=== PATIENT | male | born 1955 | race Caucasian/White ===

== ENCOUNTER 2018-11-13 15:45 | Outpatient (REF) | payer BC, SELFPAY ==
[2018-11-13 21:13] LABS: Anion Gap 10.3 mmol/L (3-11); BUN 19 mg/dL (7-18); CO2 27.7 mmol/L (21.0-32.0); CREATININE 1.08 mg/dL (0.70-1.30); Calcium 8.9 mg/dL (8.5-10.1); Chloride 104 mmol/L (98-107); Cholesterol 256 mg/dL (50-200); Glucose 110 mg/dL (70-100); HDL Cholesterol 38 mg/dL (40-60); LDL CHOLESTEROL 170 mg/dL (<100); Potassium 4.7 mmol/L (3.5-5.1); Sodium 142 mmol/L (136-145); Triglyceride 238 mg/dL (30-150)
== END 2018-11-13 16:05 ==
LOC: NCHCN 15:45
PROVIDERS: PCP Internal Medicine; Visit Provider Internal Medicine
DX: I10 Essential (primary) hypertension (principal); Z13.220 Encounter for screening for lipoid disorders
CPT/HCPCS: 80048; 80061; 83721

== ENCOUNTER 2019-12-14 11:27 | Outpatient (REF) | payer OTHER, SELFPAY ==
[2019-12-14 21:36] LABS: ALT 18 U/L (16-63); AST 28 U/L (15-37); Albumin 3.5 g/dL (3.4-5.0); Alkaline Phosphatase 245 U/L (46-116); BUN 27 mg/dL (7-18); Bilirubin, Total 1.1 mg/dL (0.2-1.0); CREATININE 1.38 mg/dL (0.70-1.30); Calcium 9.3 mg/dL (8.5-10.1); Calculated LDL 173 mg/dL (<100); Chloride 102 mmol/L (98-107); Cholesterol 261 mg/dL (<200); Estimated GFR 51.71 (mL/min/1.73m2); Glucose 92 mg/dL (74-106); HDL Cholesterol 47 mg/dL (40-60); Potassium 4.7 mmol/L (3.5-5.1); Sodium 139 mmol/L (136-145); Total Protein 7.2 g/dL (6.4-8.2); Triglyceride 209 mg/dL (<150)
[2019-12-14 21:46] LABS: Hemoglobin A1C 6.2 % (3.8-5.6)
[2019-12-16 10:30] LABS: GGT 44 U/L (15-85)
== END 2019-12-14 11:47 ==
LOC: NCHCN 11:27
PROVIDERS: PCP Internal Medicine; Visit Provider Internal Medicine
DX: R73.09 Other abnormal glucose (principal); E78.89 Other lipoprotein metabolism disorders; I10 Essential (primary) hypertension; E66.9 Obesity, unspecified; R74.8 Abnormal levels of other serum enzymes
CPT/HCPCS: 80053; 80061; 82977; 83036

== ENCOUNTER 2023-04-21 14:41 | Outpatient (REF) | payer MEDICARE, SELFPAY ==
[2023-04-21 21:30] LABS: HCT 43.8 % (40.0-50.0); HGB 14.7 g/dL (13.5-17.5); MCH 32.7 pg (27.0-33.0); MCHC 33.6 % (32.0-36.0); MCV 97 fL (80-95); MPV 9.2 fL (8.0-11.0); Platelet Count 297 10^3/uL (130-400); RDW-SD 43.4 fL; WBC 12.93 10^3/uL (4.4-10.8)
[2023-04-21 21:42] LABS: ALT 36 U/L (16-63); AST 23 U/L (15-37); Albumin 3.7 g/dL (3.4-5.0); Alkaline Phosphatase 69 U/L (46-116); Anion Gap 9.9 mmol/L (3-11); BUN 25 mg/dL (7-18); Bilirubin, Total 0.6 mg/dL (0.2-1.0); CO2 24.1 mmol/L (21.0-32.0); CREATININE 1.2 mg/dL (0.70-1.30); Calcium 9.8 mg/dL (8.5-10.1); Chloride 99 mmol/L (98-107); Estimated GFR 65.46 (mL/min/1.73m2); Glucose 138 mg/dL (74-106); Potassium 4.7 mmol/L (3.5-5.1); Sodium 133 mmol/L (136-145); Total Protein 6.7 g/dL (6.4-8.2)
[2023-04-21 22:32] LABS: Absolute Lymphocyte Count 4.27 10^3/uL (1.2-3.4); Absolute Neutrophil Count 4.91 10^3/uL (1.2-6.7); Atypical Lymphocytes % 9
[2023-04-21 22:33] LABS: Absolute Eosinophil Count 3.36 10^3/uL (0.0-0.7); Absolute Monocyte Count 0.39 10^3/uL (0.1-0.8); Diff Comment Manual Differential; RBC Morphology Normal
== END 2023-04-21 14:42 | disposition home or self-care (01) ==
LOC: NCHCN 14:41
PROVIDERS: PCP Internal Medicine; Visit Provider Family Medicine
DX: K29.70 Gastritis, unspecified, without bleeding (principal)
CPT/HCPCS: 80053; 85025

== ENCOUNTER 2024-04-06 15:26 | Emergency (ER) | payer MEDICARE, SELFPAY ==
[2024-04-06] VITALS (36 sets, daily range): BP systolic 101–144; BP diastolic 52–85; PULSE 80–105; RESP 12–24; TEMP 36; O2SAT 94–99
--- NOTE | 2024-04-06 17:30 | DI.CT_ITS ---
Exam(s) CT ABDOMEN PELVIS W EXAM: CT ABDOMEN PELVIS W CLINICAL HISTORY: DIARRHEA. TECHNIQUE: Imaging Protocol: Axial computed tomography images with coronal and sagittal reformatted images were created and reviewed CONTRAST MATERIAL: Intravenous: Omnipaque-350 85cc Oral: None COMPARISON: MR MRI - LUMBAR SPINE WO CONTRAST from 11/05/2017 FINDINGS: VISUALIZED LUNG BASES: No nodules nor pleural effusions evident. ABDOMEN: There is an enlarged right-sided retrocrural lymph node measuring 1.7 by 1.1 cm. GI: The visualized lower esophagus is not dilated. GE junction appears unremarkable. There is mild thickening of the gastric fundus. Stomach otherwise appears unremarkable as does the duodenum. Ther e is a left-sided jejunostomy feeding tube in satisfactory position with no evidence of hematoma nor abscess along its course. There is no free intraperitoneal air. There is no evidence of bowel obstr uction. On the right side there is some thickening of the colon at the level of the hepatic flexure, possibly significant. Also some mild streaking around the cecum without evidence of obvious swollen appendix. The appendix is actually difficult to identify. LIVER: There are no focal hepatic lesions evident. There are no dilated intrahepatic ducts but there is some air-gas within nondilated intrahepatic ducts both lobes. CBD is not dilated but there is so me mild streaking in this region. GALLBLADDER/BILIARY: There is a single small 3 millimeter density in the gallbladder which may be a s mall stone or polyp. There is no gallbladder wall edema. PANCREAS: No evidence of pancreatic mass nor dilatation of the pancreatic duct. SPLEEN: Spleen is not enlarged. No obvious intrasplenic lesions. Splenic and portal veins are paten t. ADRENALS: Right adrenal unremarkable. Small nodule noted in the lateral limb of the left adrenal gla nd which measures 1 cm. Indeterminate density. KIDNEYS:Left kidney unremarkable. There is a benign cyst in the medial aspect of the right kidney wh ich measures 3.3 x 2.2. Does not require further workup. No solid renal masses nor calculi. No hyd ronephrosis nor hydroureter nor obvious abnormality in the nondistended urinary bladder.. ABDOMINAL AORTA: Aorta is calcified but not enlarged. Iliac arteries are not enlarged. LYMPH NODES:There is no retroperitoneal nor paraaortic adenopathy. ABDOMINAL WALL: No evidence of significant anterior abdominal wall nor inguinal hernia. PELVIS: GI: No evidence of appendicitis.No evidence of sigmoid diverticulitis. LYMPH NODES: There is no intrapelvic nor inguinal adenopathy. REPRODUCTIVE: Prostate size normal. There is a calcification in the right-side of the prostate. URINARY BLADDER: No calculi nor obvious masses evident OSSEOUS: There is sclerotic appearing bone lesions in L5 and S1 vertebral bodies suspicious for years sclerotic metastatic disease. There are multiple Schmorl nodes invagination evident in thoracic and lumbar vertebral bodies. IMPRESSION: 1. There is a left-sided jejunostomy feeding tube which is in satisfactory position. 2. There is mild thickening of the gastric fundus evident, possibly significant. 3. There is mild streaking around the nondilated CBD. There is intrahepatic pneumobilia, possibly re lated to prior ERCP instrumentation but given this finding and mild streaking around the CBD there is possibility of cholangitis. Possible cholelithiasis. Recommend ultrasound and possible MRCP. 4. There is some abnormal streaking in the right paracolic gutter and mild thickening of the ascendin g-right colon. Possible inflammatory process although no obvious diverticuli evident the appendix is difficult to identify as a distinct structure. There is no obvious swollen appendix. 5. Modic blastic bone lesions in L5 and S1. There is apparently a history of prostate malignancy. Prostate gland itself is not enlarged. 6. There is an abnormally enlarged right retrocrural lymph node noted which measures 17 x 11 mm. No other lymphadenopathy evident 7. Small indeterminate 1 cm nodule in the left adrenal gland. Right adrenal gland unremarkable. Surgical consultation recommended. First read by Carmen hawkins RADIATION DOSE DELIVERED: 605.23mGy.cm Total DLP DATA REPOSITORY: All CT scans at this facility are submitted to the National Radiology Data Registry (NRDR) Dose Index Registry (DIR) with the [employer] ([employer]). RADIATION OPTIMIZATION: All CT scans at this facility use at least one of these dose optimization te chniques: automated exposure control; mA and/or kV adjustment per patient size (includes targeted exa ms where dose is matched to clinical indication); or iterative reconstruction.
[2024-04-06 18:13] LABS: Abs Immature Grans 0.09 10^3/uL (0.0-0.06); Absolute Basophil Count 0.02 10^3/uL (0.0-0.2); Absolute Eosinophil Count 0.49 10^3/uL (0.0-0.7); Absolute Monocyte Count 0.68 10^3/uL (0.1-0.8); Basophils % 0.2 %; Eosinophils % 4.2 %; HCT 37.7 % (40.0-50.0); HGB 12.6 g/dL (13.5-17.5); Immature Grans % 0.8 %; Lymphocytes % 18.2 %; MCH 30.4 pg (27.0-33.0); MCHC 33.4 % (32.0-36.0); MCV 91 fL (80-95); MPV 9.4 fL (8.0-11.0); Monocytes % 5.9 %; Neutrophils % 70.7 %; Platelet Count 186 10^3/uL (130-400); RBC 4.14 10^6/uL (4.36-5.78); RDW 13.4 % (11.8-14.1); WBC 11.57 10^3/uL (4.4-10.8)
[2024-04-06 18:16] LABS: Absolute Lymphocyte Count 2.11 10^3/uL (1.2-3.4); Absolute Neutrophil Count 8.18 10^3/uL (1.2-6.7)
[2024-04-06 18:29] LABS: ALT 25 U/L (16-63); AST 17 U/L (15-37); Alkaline Phosphatase 81 U/L (46-116); Anion Gap 7.9 mmol/L (3-11); BUN 21 mg/dL (7-18); Bilirubin, Total 1.06 mg/dL (0.2-1.0); CO2 25.1 mmol/L (21.0-32.0); CREATININE 0.7 mg/dL (0.70-1.30); Calcium 8.7 mg/dL (8.5-10.1); Chloride 106 mmol/L (98-107); Estimated GFR 99.12 (mL/min/1.73m2); Glucose 91 mg/dL (74-106); Lipase 15 U/L (16-77); Magnesium 1.6 mg/dL (1.8-2.4); Potassium 3.7 mmol/L (3.5-5.1); Sodium 139 mmol/L (136-145); Total Protein 6.3 g/dL (6.4-8.2)
--- NOTE | 2024-04-06 18:37 | ED.GENADUL_ITS ---
Discharge Plan Disposition Patient Disposition: Home Discharge Details Clinical Impression: Metastatic cancer, Diarrhea Primary Care Provider: Rodo Davies ED Provider: Fabricio Burks Home Meds and New Rx's Prescriptions: No Action calcium carbonate-vitamin D3 600 mg-5 mcg (200 unit) tablet 2 tab PO DAILY famotidine 40 mg tablet 40 mg PO QHS lidocaine HCl 2 % solution 1 applic mucous membrane BID PRN sildenafil [Viagra] 100 MG tablet 100 mg PO DIRECTED Patient Comments: pt states no longer takes lisinopril 20 MG tablet 20 mg PO DAILY tamsulosin 0.4 mg capsule 0.4 mg PO DAILY Patient Comments: TAKE ONE CAPSULE BY MOUTH EVERY DAY pantoprazole 40 mg tablet,delayed release (DR/EC) 40 mg PO DAILY ondansetron 4 mg tablet,disintegrating 4 mg PO Q6H PRN Patient Comments: DISSOLVE ONE TABLET BY MOUTH TWICE A DAY Discharge Instructions Additional Instructions: * CONTINUE INCREASED HYDRATION * FOLLOW UP WITH YOUR ONCOLOGY TEAM * RETURN WITH ANY WORSENING SYMPTOMS OR OTHER CONCERNS HPI General Date/Time Provider Initiated Documentation: 04/06/24 15:28 . Limitations to Documentation: no limitations . Information obtained by: patient and family (Daughter) . HPI Narrative: 69-year-old gentleman with past medical history of prostate cancer, gastric cancer on chemotherapy followed by oncology at [facility] presents for evaluation of diarrhea. He last had chemotherapy 1 week ago. Had some vomiting over the weekend. Was evaluated by [facility] oncology yesterday in clinic. Had lab work at that time which was normal . He did receive an IV fluid bolus yesterday in clinic. Overnight he started having diarrhea. They describe it as sharting and that he has a large volume of gas but not very much stool actually comes out. He reports some cramping lower abdominal pain. No fever. No additional vomiting since over the weekend. No recent antibiotic use. Related Data Home Medications ?Medication ?Instructions ?Recorded ?Confirmed sildenafil 100 mg tablet (Viagra) 100 mg PO DIRECTED 03/02/14 04/06/24 lisinopril 20 mg tablet 20 mg PO DAILY 06/05/16 04/06/24 calcium 600 mg (as 2 tab PO DAILY 10/28/23 04/06/24 carbonate)-vitamin D3 5 mcg (200 unit) tablet famotidine 40 mg tablet 40 mg PO QHS 10/28/23 04/06/24 lidocaine HCl 2 % mucosal solution 1 applic mucous membrane BID PRN 10/28/23 04/06/24 ondansetron 4 mg disintegrating 4 mg PO Q6H PRN 04/06/24 04/06/24 tablet pantoprazole 40 mg tablet,delayed 40 mg PO DAILY 04/06/24 04/06/24 release tamsulosin 0.4 mg capsule 0.4 mg PO DAILY 04/06/24 04/06/24 Allergies Allergy/AdvReac Type Severity Reaction Status Date / Time No Known Allergies Allergy Unverified 04/06/24 15:33 General Stated Complaint: Nausea/Vomit/Diar SPENCER: 3 Exam Narrative Exam Narrative: Review of Systems: All systems reviewed & are unremarkable except as noted in HPI and below Well-developed, chronically ill-appearing NCAT Moist mucous membranes RRR no murmur Port in right upper chest wall Unlabored respiratory effort clear bilaterally Nondistended abdomen G-tube in place, laparoscopic port incisions noted, well-approximated no signs of infection. No rashes or lesions. no focal neurologic deficits Course Vital Signs Vital signs: Vital Signs Temperature 36 C L 04/06/24 15:30 Pulse 102 H 04/06/24 15:30 Respiratory Rate 18 04/06/24 15:30 Blood Pressure 127/85 04/06/24 15:30 Pulse Oximetry 96 04/06/24 15:30 Temperature 36 C L 04/06/24 15:30 Temperature Source Temporal Artery Scan 04/06/24 15:30 Pulse 97 H 04/06/24 17:27 Pulse Rhythm Regular 04/06/24 17:27 Respiratory Rate 18 04/06/24 17:27 Respiratory Effort Normal, Non-Labored 04/06/24 17:27 Respiratory Depth Normal 04/06/24 17:27 Respiratory Pattern Normal 04/06/24 17:27 Blood Pressure 144/84 H 04/06/24 17:27 Blood Pressure Mean 104 04/06/24 17:27 Blood Pressure Position Sitting 04/06/24 17:27 Pulse Oximetry 97 04/06/24 17:27 Oxygen Delivery Method Room Air 04/06/24 17:27 Oxygen Flow Rate 0 04/06/24 17:27 Pain Level 5 04/06/24 17:27 Lab/Test Results Lab/Test Results: Laboratory Tests Range/Units 04/06/24 18:00 WBC (4.4-10.8) 10^3/uL 11.57 H RBC (4.36-5.78) 10^6/uL 4.14 L Hgb (13.5-17.5) g/dL 12.6 L Hct (40.0-50.0) % 37.7 L MCV (80-95) fL 91 MCH (27.0-33.0) pg 30.4 MCHC (32.0-36.0) % 33.4 RDW (11.8-14.1) % 13.4 Plt Count (130-400) 10^3/uL 186 MPV (8.0-11.0) fL 9.4 Immature Gran % % 0.8 Neutrophils % % 70.7 Lymphocytes % % 18.2 Monocytes % % 5.9 Eosinophils % % 4.2 Basophils % % 0.2 Nucleated RBC % (0.0-0.3) % 0.0 Absolute Neutrophils (1.2-6.7) 10^3/uL 8.18 H Absolute Lymphocytes (1.2-3.4) 10^3/uL 2.11 Absolute Monocytes (0.1-0.8) 10^3/uL 0.68 Absolute Eosinophils (0.0-0.7) 10^3/uL 0.49 Absolute Basophils (0.0-0.2) 10^3/uL 0.02 Sodium (136-145) mmol/L 139 Potassium (3.5-5.1) mmol/L 3.7 Chloride (98-107) mmol/L 106 Carbon Dioxide (21.0-32.0) mmol/L 25.1 Anion Gap (3-11) mmol/L 7.9 BUN (7-18) mg/dL 21 H Creatinine (0.70-1.30) mg/dL 0.7 Est GFR (CKD-EPI 2020) (mL/min/1.73m2) 99.12 Glucose (74-106) mg/dL 91 Calcium (8.5-10.1) mg/dL 8.7 Magnesium (1.8-2.4) mg/dL 1.6 L Total Bilirubin (0.2-1.0) mg/dL 1.06 H AST (15-37) U/L 17 ALT (16-63) U/L 25 Alkaline Phosphatase (46-116) U/L 81 Total Protein (6.4-8.2) g/dL 6.3 L Albumin (3.4-5.0) g/dL 3.0 L Lipase (16-77) U/L 15 L Medical Decision Making Emergent evaluation of diarrhea and an immune compromised patient. With last chemo 1 week ago. Daughter reports that blood work yesterday and white blood cell count were normal. I do not have access to this blood work. At this time the patient does not appear to be clinically dehydrated. Given her IV fluids shortage and the fact that he got a bolus yesterday, will hold off fluids until I see lab work. Initial differential includes typhlitis, C. difficile, other infectious diarrhea or side effect from chemotherapy. Plan for lab work and CT imaging of his abdomen. 1840 Lab work reviewed. White blood cell count is 11.57, no evidence of neutropenia. No significant anemia. Electrolytes without significant derangement. Magnesium slightly low at 1.6. Total protein and albumin are low as well. CT imaging reviewed and there are multiple abnormalities secondary to his known metastatic disease. The family and the patient are aware of these abnormalities. The pneumobilia is likely from his recent surgical procedure there is no evidence of ascending cholangitis clinically. The patient has not had any diarrhea since 2:00. He is able to tell hydrate orally and through his G-tube. At this time I think he is stable for discharge home. With close follow-up with oncology team. Return precautions advised Quality:SDOH Health Related Social Needs: No Data to Display PFSH All Active Problems (Updated 04/06/24 @ 20:49 by Fabricio Burks MD) Diarrhea (Acute) Metastatic cancer (Acute) Gastroduodenitis (Acute) Hypertension (Chronic) Malignant neoplasm prostate (Chronic) Medical History Prediabetes Social History Smoking/Tobacco Use Status: Former Tobacco Use Smoking risk assessment performed?: Yes Alcohol Intake: never Drug use: Never Substance use type: does not use
[2024-04-06] MEDS: Omnipaque 350 MG/ML 100 ML BTL IJ (19:18)
[2024-04-06] MEDS: Normal Saline - Diluent 50 ML VIAL IJ (19:19)
--- NOTE | 2024-04-06 20:38 | DI.VRAD_ITS ---
PROCEDURE INFORMATION: Exam: CT Abdomen And Pelvis With Contrast Exam date and time: 04/06/2024 7:06 PM Age: 69 years old Clinical indication: Prior surgery; Surgery date: <1 month; Surgery type: Feeding tube; Patient HX: Diarrhea. Patient had prostate cancer and now has gastric cancer TECHNIQUE: Imaging protocol: Computed tomography of the abdomen and pelvis with contrast. Radiation optimization: All CT scans at this facility use at least one of these dose optimization techniques: automated exposure control; mA and/or kV adjustment per patient size (includes targeted exams where dose is matched to clinical indication); or iterative reconstruction. Contrast material: [id number]; Contrast volume: 85 ml; Contrast route: INTRAVENOUS (IV); COMPARISON: MRI - LUMBAR SPINE WO CONTRAST 11/05/2017 4:56 PM FINDINGS: Lungs: The lung bases are clear of acute infiltrate. No nodules in the lung bases are identified. Heart: The heart is not enlarged. There is no coronary artery calcification. Liver: The liver shows no abnormal lesion. There is however mild pneumobilia. This may be secondary to recent intervention as well as ascending cholangitis. There is no intrahepatic biliary dilatation. Gallbladder and biliary ducts: No calcified gallstones. The extrahepatic common duct is nondilated. Pancreas: The pancreas shows no focal lesion. Spleen: The spleen is not enlarged. Adrenal glands: The right adrenal gland is unremarkable. The left adrenal gland contains a 10 mm low-density nodule of the lateral limb. The Hounsfield density measurement is 23. This is indeterminate for an adenoma. Kidneys and ureters: The kidneys are unobstructed. There are no calculi. The right kidney contains a 3.1 cm low-density cortical lesion consistent with a simple cyst the Hounsfield density measurement is 13 Stomach and bowel: The patient has a clinical history of gastric carcinoma. There is mild thickening at the gastroesophageal junction and of the gastric fundus. There is no gastric outlet obstruction. There is mild thickening of the colon at the level of the hepatic flexure. This may represent peristalsis and edema but a developing metastatic deposit cannot be excluded. (series 8, image 37 No inflammatory process of the sigmoid colon. The patient has a small bowel feeding tube in the left flank which is in good position. Appendix: No findings for appendicitis. Intraperitoneal space: No free air or free fluid Vasculature: The abdominal aorta is of normal caliber. Lymph nodes: There are several right retrocrural lymph nodes which are enlarged. The largest measures 11 x 18 mm. No abnormal para-aortic lymph nodes are identified. Urinary bladder: The bladder shows no filling defects. Reproductive: The prostate gland is not abnormally enlarged. There are surgical clips in the scrotum consistent with a prior vasectomy. Bones/joints: There are sclerotic lesions involving the L5 and S1 vertebral bodies consistent with metastatic deposits. There are additional sclerotic lesions involving the lower thoracic spine as well as degenerative changes and a superior endplate compression deformity of the T11 body which appears chronic Soft tissues: No abnormal abdominal soft tissue masses identified. IMPRESSION: 1. History of prostate carcinoma with sclerotic lesions involving L5, S1 and lower thoracic vertebral bodies. 2. Mild thickening at the gastroesophageal junction and gastric fundus which may represent underlying neoplasm. 3. Mild intrahepatic pneumobilia which may be secondary to recent intervention or ascending cholangitis. 4. Thickening at the level of the hepatic flexure which may be secondary to edema or developing metastatic deposit. 5. Increased right retrocrural adenopathy. 6. Small left adrenal nodule. 7. Small bowel feeding tube in good position. A. Bony metastatic disease of the thoracic spine, lumbar spine and sacrum. Dictated and Authenticated by: Conrad Canchola MD. Ordering:[facility] Vitaliy Rosario MD
== END 2024-04-06 20:53 | disposition home or self-care (01) ==
PROVIDERS: Emergency Provider Emergency Medicine; PCP Internal Medicine
DX: R53.1 Weakness (principal); R19.7 Diarrhea, unspecified; C61 Malignant neoplasm of prostate; C78.89 Secondary malignant neoplasm of other digestive organs; I10 Essential (primary) hypertension; R93.5 Abnormal findings on diagnostic imaging of other abdominal regions, including retroperitoneum; Z93.1 Gastrostomy status; Z92.21 Personal history of antineoplastic chemotherapy; Z87.891 Personal history of nicotine dependence
CPT/HCPCS: 80053; 83690; 99285; 74177; 83735; 85025; 99284; J3490

== ENCOUNTER 2024-07-23 23:58 | Emergency (ER) | payer MEDICARE, SELFPAY ==
--- NOTE | 2024-07-23 23:45 | RT.EKG_ITS ---
APPROVED REPORT Exam: Resting ECG Reason for Exam: fever/tachy Patient Location: E HR:116 bpm ECG Measurements Heart Rate 116 AXIS MA 137 P 56 QRSd 90 QRS -23 QT 330 T 4 QTc 459 Conclusion Sinus tachycardia...rate> 99 Low voltage, precordial leads...precordial leads <1.0mV I have reviewed and interpreted ECG and agree with software generated interpretation.
[2024-07-23 23:59] VITALS: BP 151/71; PULSE 125; RESP 21; TEMP 37.4; O2SAT 93
[2024-07-24] VITALS (62 sets, daily range): BP systolic 121–165; BP diastolic 61–93; PULSE 104–128; RESP 19–32; O2SAT 89–98
[2024-07-24 00:23] LABS: BE (Venous) 5 mmol/L (-2-3); HCO3 (Venous) 29 mmol/L (23-28); O2 Sat (Venous) 31 %; TCO2 (Venous) 28 mmol/L (24-29); pCO2 (Venous) 43 mmHg (41-51); pH (Venous) 7.44 (7.31-7.41); pO2 (Venous) 20 mmHg
[2024-07-24 00:24] LABS: Lactate 1.3 mmol/L (<or=2.0)
[2024-07-24 00:28] LABS: Abs Immature Grans 0.04 10^3/uL (0.0-0.06); Absolute Basophil Count 0.01 10^3/uL (0.0-0.2); Absolute Eosinophil Count 0.05 10^3/uL (0.0-0.7); Absolute Lymphocyte Count 1.59 10^3/uL (1.2-3.4); Absolute Monocyte Count 1.34 10^3/uL (0.1-0.8); Absolute Neutrophil Count 9.03 10^3/uL (1.2-6.7); Basophils % 0.1 %; Eosinophils % 0.4 %; HCT 25.7 % (40.0-50.0); HGB 8.3 g/dL (13.5-17.5); Immature Grans % 0.3 %; Lymphocytes % 13.2 %; MCH 33.9 pg (27.0-33.0); MCHC 32.3 % (32.0-36.0); MCV 105 fL (80-95); MPV 10.2 fL (8.0-11.0); Monocytes % 11.1 %; Neutrophils % 74.9 %; Platelet Count 208 10^3/uL (130-400); RBC 2.45 10^6/uL (4.36-5.78); RDW 12.9 % (11.8-14.1); RDW-SD 49.9 fL; WBC 12.06 10^3/uL (4.4-10.8)
--- NOTE | 2024-07-24 00:35 | ED.GENADUL_ITS ---
Discharge Plan Disposition Patient Disposition: Transfer-Acute Inpatient Care Specific Acute Inpt Facility: [facility] Condition: Improving Discharge Details Clinical Impression: Sepsis, Pleural effusion, Abdominal pain, Fever of unknown origin Primary Care Provider: Rodo Davies ED Provider: Zac Bauer Home Meds and New Rx's Prescriptions: No Action calcium carbonate-vitamin D3 600 mg-5 mcg (200 unit) tablet 2 tab PO DAILY famotidine 40 mg tablet 40 mg PO QHS lidocaine HCl 2 % solution 1 applic mucous membrane BID PRN sildenafil [Viagra] 100 MG tablet 100 mg PO DIRECTED Patient Comments: pt states no longer takes lisinopril 20 MG tablet 20 mg PO DAILY oxycodone 5 mg tablet 5 mg PO tamsulosin 0.4 mg capsule 0.4 mg PO DAILY Patient Comments: TAKE ONE CAPSULE BY MOUTH EVERY DAY pantoprazole 40 mg tablet,delayed release (DR/EC) 40 mg PO DAILY ondansetron 4 mg tablet,disintegrating 4 mg PO Q6H PRN Patient Comments: DISSOLVE ONE TABLET BY MOUTH TWICE A DAY HPI General Date/Time Provider Initiated Documentation: 07/24/24 00:00 . 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 Patient has been home for the last 2 days, he has been having bowel movements and regular urinary movements. However over the last 24 hours his daughter has noted a decrease in his oxygenation, increase in respirations, and increase in heart rate. He admits to chronic persistent lower abdominal pain. He has had about 100+ cc of drainage from his abdominal CHRISTOPHER drain. He denies any vomiting. He does admit to intermittent fevers at home. He does admit to intermittent chills. He denies any hematemesis or hematochezia. No other complaints at this time. He is not currently on antibiotics. Related Data Home Medications ?Medication ?Instructions ?Recorded ?Confirmed sildenafil 100 mg tablet (Viagra) 100 mg PO DIRECTED 03/02/14 07/24/24 lisinopril 20 mg tablet 20 mg PO DAILY 12/21/16 02/08/25 calcium 600 mg (as 2 tab PO DAILY 10/28/23 07/24/24 carbonate)-vitamin D3 5 mcg (200 unit) tablet famotidine 40 mg tablet 40 mg PO QHS 10/28/23 07/24/24 lidocaine HCl 2 % mucosal solution 1 applic mucous membrane BID PRN 10/28/23 07/24/24 ondansetron 4 mg disintegrating 4 mg PO Q6H PRN 04/06/24 07/24/24 tablet pantoprazole 40 mg tablet,delayed 40 mg PO DAILY 04/06/24 07/24/24 release tamsulosin 0.4 mg capsule 0.4 mg PO DAILY 04/06/24 07/24/24 oxycodone 5 mg tablet 5 mg PO 07/24/24 Allergies Allergy/AdvReac Type Severity Reaction Status Date / Time No Known Allergies Allergy Unverified 07/24/24 03:08 General Stated Complaint: GenMedical SPENCER: 3 Exam Narrative Exam Narrative: 1.Const: Well-nourished, Well-developed, appearing stated age 2.Eyes: PERRL, no conjunctival injection, and symmetrical lids. 3.ENT: Atraumatic external nose and ears. Dry MM. Neck: Symmetric, trachea midline, No thyromegaly. 4.CVS: +S1/S2, Peripheral pulses 2+ and equal in all extremities. Brisk capillary refill in all extremities. 5.RESP: Unlabored respiratory effort. Slight diminishment at bases, no severe rhonchi. Questionable crackles. 6.GI: Postoperative vertical incision site is clean dry and intact with clare in place. No erythema or drainage. CHRISTOPHER drain demonstrates active white serou s/pseudo purulent drainage. Gastric tube in place without abnormality. Mild tenderness throughout on palpation of the lower abdomen, particularly near the mid lower abdomen. Mild voluntary guarding. 7.MSK: Normocephalic/Atraumatic, Extremities w/o deformity or ttp No cyanosis or clubbing, Normal movement of all extremities. No pitting edema of the lower extremities. 8.Skin: Warm, Dry. No rashes or lesions. 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 Sensation grossly intact, no focal neurologic deficits. 10.Psych: (AAO) x3. Appropriate mood and affect Course Vital Signs Vital signs: Vital Signs Temperature 37.4 C 07/23/24 23:59 Pulse 125 H 02/07/25 23:59 Respiratory Rate 21 07/23/24 23:59 Blood Pressure 151/71 H 07/23/24 23:59 Pulse Oximetry 93 07/23/24 23:59 Temperature 37.4 C 07/23/24 23:59 Temperature Source Oral 07/23/24 23:59 Pulse 125 H 07/23/24 23:59 Respiratory Rate 21 07/23/24 23:59 Blood Pressure 151/71 H 07/23/24 23:59 Blood Pressure Position Supine 07/23/24 23:59 Pulse Oximetry 93 07/23/24 23:59 Oxygen Delivery Method Room Air 07/23/24 23:59 Oxygen Flow Rate 0 07/23/24 23:59 Lab/Test Results Lab/Test Results: 07/24/24 00:13 Blood Blood Culture - Pending 07/24/24 00:08 Blood Blood Culture - Pending Laboratory Tests Range/Units 07/24/24 00:13 WBC (4.4-10.8) 10^3/uL 12.06 H RBC (4.36-5.78) 10^6/uL 2.45 L Hgb (13.5-17.5) g/dL 8.3 L Hct (40.0-50.0) % 25.7 L MCV (80-95) fL 105 H MCH (27.0-33.0) pg 33.9 H MCHC (32.0-36.0) % 32.3 RDW (11.8-14.1) % 12.9 Plt Count (130-400) 10^3/uL 208 MPV (8.0-11.0) fL 10.2 Immature Gran % % 0.3 Neutrophils % % 74.9 Lymphocytes % % 13.2 Monocytes % % 11.1 Eosinophils % % 0.4 Basophils % % 0.1 Nucleated RBC % (0.0-0.3) % 0.0 Absolute Neutrophils (1.2-6.7) 10^3/uL 9.03 H Absolute Lymphocytes (1.2-3.4) 10^3/uL 1.59 Absolute Monocytes (0.1-0.8) 10^3/uL 1.34 H Absolute Eosinophils (0.0-0.7) 10^3/uL 0.05 Absolute Basophils (0.0-0.2) 10^3/uL 0.01 VBG pH (7.31-7.41) 7.44 H VBG pCO2 (41-51) mmHg 43 VBG pO2 mmHg 20 VBG HCO3 (23-28) mmol/L 29 H VBG Total CO2 (24-29) mmol/L 28 VBG O2 Saturation % 31 VBG Base Excess (-2-3) mmol/L 5 H VBG Lactate (<or=2.0) mmol/L 1.3 Medical Decision Making This is a 69-year-old male with a past medical history of prostate cancer currently receiving chemotherapy, hypertension, GERD, peptic ulcer disease, 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 Patient has been home for the last 2 days, he has been having bowel movements and regular urinary movements. However over the last 24 hours his daughter has noted a decrease in his oxygenation, increase in respirations, and increase in heart rate. He admits to chronic persistent lower abdominal pain. He has had about 100+ cc of drainage from his abdominal CHRISTOPHER drain. He denies any vomiting. He does admit to intermittent fevers at home. He does admit to intermittent chills. He denies any hematemesis or hematochezia. No other complaints at this time. He is not currently on antibiotics. Exam demonstrates a slightly guarded male, abdominal tenderness in the lower abdomen especially in the mid region is certainly present. Incision site is otherwise clean dry and intact, CHRISTOPHER drain demonstrates white serous purulent discharge. No blood. Notably dry mucous membranes. Patient is tachycardic and febrile, concern for postoperative infection versus pneumonia. UTI less likely. Patient does meet sepsis criteria. We will start broad-spectrum antibiotics for both atypical coverage, hospital-acquired infections, and postoperative intra-abdominal infections. Will give vancomycin Zosyn and azithromycin. Will gently rehydrate first with 1 L, but I do want to avoid excessive rehydration secondary to his age, and concern for potential fluid overload. We will get CT imaging of the chest abdomen and pelvis, monitor closely and reassess. 4:24 AM Laboratory workup shows stable white count at 12, mild left shift with an absolute neutrophil count of 9, lactate is normal at 1.3, however procalcitonin is elevated at 0.2. Electrolytes stable. Urinalysis negative for infection, COVID flu and RSV negative for evidence of infection. CT imaging shows small bilateral pleural effusions, atelectasis is noted. There is some air in the bladder, however this is likely from procedure elicitation as he has no evidence of infection in the urine to suggest fistula or UTI. There are some inflammatory changes noted throughout the abdomen otherwise. Patient's heart rate is slightly improving after 1 L fluid bolus, he has come down from the 120s and 130s to the 110's. Uncertain as to the source of his home fever and mildly elevated temperature here, certainly could be a component of the atelectasis in the lungs, or change in the intra-abdominal compartment although there is no evidence of large fluid collection to suggest definitive abscess. Antibiotics have been given already. Pain is still notably pleasant for the abdomen, and we will transition to narcotic/morphine use for pain control. We did contact surgery at the [facility], I spoke with Dr. Wills. Patient will be transferred to [facility] ED to ED for admission. I have extensively reviewed the treatment plan with the patient. I have addressed all patient concerns at this time. I have also discussed the plan with the admitting physician and they agree with the current assessment and plan and have agreed to assume responsibility for the patient. All parties demonstrate verbal understanding and agreement with our assessment and plan at this time. The documentation in this chart was dictated using Disc[employer] dictation software. Please excuse any dictation errors. FINDINGS: Tubes, catheters and devices: Right chest wall port present. Lungs: Dependent/basilar/compressive atelectasis. Pleural spaces: Small volume bilateral pleural effusions. Heart: Unremarkable. No cardiomegaly. No pericardial effusion. Esophagus: Esophagus is unremarkable. Lymph nodes: Unremarkable. No enlarged lymph nodes. Vasculature: Aorta is normal in caliber. Bones/joints: Multifocal sclerotic osseous metastases. Soft tissues: Substantial bilateral gynecomastia IMPRESSION: 1. Small volume bilateral pleural effusions. 2. Multifocal sclerotic osseous metastases FINDINGS: Tubes, catheters and devices: Percutaneous J-tube in place. Right lower quadrant percutaneous drainage catheter tip is at the gastrohepatic ligament. No associated abscess. Liver: Normal. No mass. Gallbladder and biliary ducts: Gallbladder sludge. Gallbladder is distended. No definite gallbladder wall thickening to indicate acute cholecystitis. No biliary ductal dilatation. Pancreas: Nonspecific right upper quadrant inflammation is presumably related to recent surgery; however, acute pancreatitis or cholecystitis is not excluded. Spleen: Normal. Adrenal glands: Normal. No mass. Kidneys and ureters: Normal. No hydronephrosis. Stomach and bowel: Chronic postsurgical changes of the stomach and bowel. No bowel wall thickening or intestinal obstruction. No pneumatosis or portal/mesenteric venous gas. Appendix: Normal appendix. Intraperitoneal space: No pneumoperitoneum. Retroperitoneal space: There is a 3.2 cm heterogeneously hypoattenuating oval structure in the retroperitoneum anterior to the aorta (image 162/series 2) which was not present on the prior study. Etiology is uncertain. There is no associated inflammation. Consider further evaluation with repeat study with IV contrast. Vasculature: See Stomach and bowel finding. Lymph nodes: Unremarkable. Urinary bladder: Gas in the lumen of the urinary bladder. Small bladder diverticulum. Reproductive: Unremarkable as visualized. Bones/joints: Multifocal sclerotic osseous metastases. Soft tissues: Expected recent post laparotomy changes of the anterior abdominal wall. IMPRESSION: 1. Multifocal sclerotic osseous metastases. 2. There is air in the anti-dependent lumen of the urinary bladder with no Kelly catheter in place. This is a normal finding if the patient has had a Kelly catheter recently removed, if there has been recent straight catheterization or a recent unsuccessful attempt at Kelly catheter placement, or if there has been recent transurethral intervention. Otherwise, the presence of air in the bladder raises the possibility of the presence of a vesicoenteric/vesicocolic fistula or emphysematous cystitis; however, there are no ancillary findings of either of these entities on this study. RECOMMEND clinical correlation. 3. There is a 3.2 cm heterogeneously hypoattenuating oval structure in the retroperitoneum anterior to the aorta (image 162/series 2) which was not present on the prior study. Etiology is uncertain. There is no associated inflammation. Consider further evaluation with repeat study with IV contrast. 4. Nonspecific right upper quadrant inflammation is presumably related to recent surgery; however, acute pancreatitis or cholecystitis is not excluded. Thank you for allowing us to participate in the care of your patient. Dictated and Authenticated by: Dinh Reed MD 07/24/2024 1:37 AM Eastern Time ([place] & [place]) Quality:SDOH Health Related Social Needs: No Data to Display Critical Care Time Critical Care Time Critical Care Time: Yes Total Critical Care Time: 45 Attestation: Upon my evaluation, this patient had a high probability of imminent or life- threatening deterioration, which required my direct attention, intervention, and personal management. I have personally provided 45 minutes of critical care time exclusive of time spent on separately billable procedures. Time includes review of laboratory data, radiology results, discussion with consultants, and monitoring for potential decompensation. Interventions were performed as documented. PFSH All Active Problems (Updated 07/24/24 @ 04:23 by Zac Bauer DO) Fever of unknown origin (Acute) Abdominal pain (Acute) Pleural effusion (Acute) Sepsis (Acute) Gastroduodenitis (Acute) Hypertension (Chronic) Malignant neoplasm prostate (Chronic) Medical History Prediabetes Social History Smoking/Tobacco Use Status: Former Tobacco Use Smoking risk assessment performed?: Yes Alcohol Intake: never Drug use: Never Substance use type: does not use Do you feel safe at home: Yes Do you feel safe in your relationship?: Yes
[2024-07-24 00:37] LABS: PTT Activated 26.1 sec (20.6-30.2); Prothrombin Time 10.5 sec (9.1-11.1)
--- NOTE | 2024-07-24 00:44 | DI.CT_ITS ---
Exam(s) CT CHEST/ABD/PEL WO EXAM: CT CHEST/ABD/PEL WO CLINICAL HISTORY: post op fever, abd sahara, cough. TECHNIQUE: Imaging Protocol: Axial computed tomography images with coronal and sagittal reformatted images were created and reviewed. Computer aided detection (CAD) was utilized. CONTRAST MATERIAL: Intravenous: Noncontrast Oral: no COMPARISON: CT CT ABDOMEN PELVIS W from 04/06/2024 FINDINGS: CHEST: Tracheobronchial tree: Patent. Pulmonary parenchyma: No consolidation or dominant measurable mass. Basilar atelectasis. Pleura: Small bilateral pleural effusions no pneumothorax. Mediastinum: Within normal limits. Aorta: Thoracic portion non-dilated. Pulmonary arteries: No visible emboli. Heart: Normal size. Coronary artery calcifications. No pericardial effusion. Bones: Unremarkable for age. Scattered sclerotic bone metastases again noted. No compression fractu res. Soft tissues: Port over right upper chest. Significant bilateral gynecomastia. ABDOMEN and PELVIS: Liver: Normal density. No measurable mass. Gallbladder and biliary tract: Gallbladder sludge. No wall thickening. No biliary dilatation. Pancreas: Normal density, no abnormal calcifications or inflammatory process. Spleen: Normal. Kidneys: Normal size, contour and axis. No radiodense stones. No obstructive uropathy. No suspicious masses seen. Adrenal glands: No masses seen. Aorta: Abdominal portion non-dilated. Lymph nodes: Within normal limits. Soft tissues: Upper midline surgical skin clare. Some body wall edema. Bladder: Wall thickening and mild trabeculation. Left-sided bladder diverticulum. Small air bubble noted within the bladder. Bowel: Surgical clips at fundus of stomach. Gastric resection as occurred since the previous exam. Left anterior small bowel anastomosis. Percutaneous jejunostomy noted. Mild dilatation of proximal jejunum. Additional catheter entering at the right upper midline extending superiorly adjacent to th e medial border of the liver. No obstruction or bowel wall thickening. High-density material noted in the colon related to a recent contrast administration. Peritoneal cavity: No ascites. No focal collection. Mild mesenteric edema. No free air. Retroperitoneum: Ovoid 3.2 centimeter soft tissue nodule seen anterior to the aorta, at the level of the renal veins. This is new since the prior exam. Could represent adenopathy versus post surgical changes. Bones: Sclerotic bone metastases again noted. Reproductive organs: Status post prostatectomy. IMPRESSION: Chest: Small bilateral pleural effusions and adjacent atelectasis. Abdomen pelvis: Recent surgery with drain in place. No significant fluid collection or ascites. No evidence of abscess. No evidence of bowel obstruction. Soft tissue density anterior to aorta of uncertain etiology. Recommend postcontrast examination. Widespread sclerotic bony metastases. Small amount of air in the bladder. Clinical correlation recommended. Bladder wall thickening and b ladder diverticulum. RADIATION DOSE DELIVERED: Total DLP DATA REPOSITORY: All CT scans at this facility are submitted to the National Radiology Data Registry (NRDR) Dose Index Registry (DIR) with the [employer] (A[employer]). RADIATION OPTIMIZATION: All CT scans at this facility use at least one of these dose optimization te chniques: automated exposure control; mA and/or kV adjustment per patient size (includes targeted exa ms where dose is matched to clinical indication); or iterative reconstruction.
[2024-07-24 00:45] LABS: ALT 21 U/L (16-63); AST 16 U/L (15-37); Albumin 1.8 g/dL (3.4-5.0); Alkaline Phosphatase 132 U/L (46-116); Anion Gap 6.2 mmol/L (3-11); BUN 17 mg/dL (7-18); Bilirubin, Total 0.39 mg/dL (0.2-1.0); CO2 30.8 mmol/L (21.0-32.0); CREATININE 0.7 mg/dL (0.70-1.30); Calcium 8.6 mg/dL (8.5-10.1); Chloride 104 mmol/L (98-107); Estimated GFR 99.12 (mL/min/1.73m2); Glucose 117 mg/dL (74-106); Potassium 3.8 mmol/L (3.5-5.1); Sodium 141 mmol/L (136-145); Total Protein 6.2 g/dL (6.4-8.2)
[2024-07-24] MEDS: PIPERACILLIN/TAZO 3.375 GM in Normal Saline 100 ML IVPB (01:04)
[2024-07-24] MEDS: Lactated Ringers 500 ML 1000 ML IV (01:05)
[2024-07-24] MEDS: AZITHROMYCIN 500 MG in Normal Saline 250 ML 250 MG IVPB (01:08)
[2024-07-24 01:25] LABS: COVID-19 PCR Negative (Negative); Influenza A PCR Negative (Negative); Influenza B PCR Negative (Negative); RSV PCR Negative (Negative); Source Nasopharynx
--- NOTE | 2024-07-24 01:37 | DI.VRAD_ITS ---
PROCEDURE INFORMATION: Exam: CT Chest Without Contrast; Diagnostic Exam date and time: 07/24/2024 12:28 AM Age: 69 years old Clinical indication: Abdominal pain; Generalized; Prior surgery; Surgery date: Post-operative (0-2 days); Surgery type: Stomach resection, drain; Post op fever, abd pain, cough, TECHNIQUE: Imaging protocol: Diagnostic computed tomography of the chest without contrast. 3D rendering (Not supervised by radiologist): MIP and/or 3D reconstructed images were created by the technologist. Radiation optimization: All CT scans at this facility use at least one of these dose optimization techniques: automated exposure control; mA and/or kV adjustment per patient size (includes targeted exams where dose is matched to clinical indication); or iterative reconstruction. COMPARISON: CT ABDOMEN PELVIS W 04/06/2024 7:06 PM FINDINGS: Tubes, catheters and devices: Right chest wall port present. Lungs: Dependent/basilar/compressive atelectasis. Pleural spaces: Small volume bilateral pleural effusions. Heart: Unremarkable. No cardiomegaly. No pericardial effusion. Esophagus: Esophagus is unremarkable. Lymph nodes: Unremarkable. No enlarged lymph nodes. Vasculature: Aorta is normal in caliber. Bones/joints: Multifocal sclerotic osseous metastases. Soft tissues: Substantial bilateral gynecomastia IMPRESSION: 1. Small volume bilateral pleural effusions. 2. Multifocal sclerotic osseous metastases. PROCEDURE INFORMATION: Exam: CT Abdomen And Pelvis Without Contrast Exam date and time: 07/24/2024 12:28 AM Age: 69 years old Clinical indication: Abdominal pain; Generalized; Prior surgery; Surgery date: Post-operative (0-2 days); Surgery type: Stomach resection, drain; Post op fever, abd pain, cough, TECHNIQUE: Imaging protocol: Computed tomography of the abdomen and pelvis without contrast. 3D rendering (Not supervised by radiologist): MIP and/or 3D reconstructed images were created by the technologist. Radiation optimization: All CT scans at this facility use at least one of these dose optimization techniques: automated exposure control; mA and/or kV adjustment per patient size (includes targeted exams where dose is matched to clinical indication); or iterative reconstruction. COMPARISON: CT ABDOMEN PELVIS W 04/06/2024 7:06 PM FINDINGS: Tubes, catheters and devices: Percutaneous J-tube in place. Right lower quadrant percutaneous drainage catheter tip is at the gastrohepatic ligament. No associated abscess. Liver: Normal. No mass. Gallbladder and biliary ducts: Gallbladder sludge. Gallbladder is distended. No definite gallbladder wall thickening to indicate acute cholecystitis. No biliary ductal dilatation. Pancreas: Nonspecific right upper quadrant inflammation is presumably related to recent surgery; however, acute pancreatitis or cholecystitis is not excluded. Spleen: Normal. Adrenal glands: Normal. No mass. Kidneys and ureters: Normal. No hydronephrosis. Stomach and bowel: Chronic postsurgical changes of the stomach and bowel. No bowel wall thickening or intestinal obstruction. No pneumatosis or portal/mesenteric venous gas. Appendix: Normal appendix. Intraperitoneal space: No pneumoperitoneum. Retroperitoneal space: There is a 3.2 cm heterogeneously hypoattenuating oval structure in the retroperitoneum anterior to the aorta (image 162/series 2) which was not present on the prior study. Etiology is uncertain. There is no associated inflammation. Consider further evaluation with repeat study with IV contrast. Vasculature: See Stomach and bowel finding. Lymph nodes: Unremarkable. Urinary bladder: Gas in the lumen of the urinary bladder. Small bladder diverticulum. Reproductive: Unremarkable as visualized. Bones/joints: Multifocal sclerotic osseous metastases. Soft tissues: Expected recent post laparotomy changes of the anterior abdominal wall. IMPRESSION: 1. Multifocal sclerotic osseous metastases. 2. There is air in the anti-dependent lumen of the urinary bladder with no Kelly catheter in place. This is a normal finding if the patient has had a Kelly catheter recently removed, if there has been recent straight catheterization or a recent unsuccessful attempt at Kelly catheter placement, or if there has been recent transurethral intervention. Otherwise, the presence of air in the bladder raises the possibility of the presence of a vesicoenteric/vesicocolic fistula or emphysematous cystitis; however, there are no ancillary findings of either of these entities on this study. RECOMMEND clinical correlation. 3. There is a 3.2 cm heterogeneously hypoattenuating oval structure in the retroperitoneum anterior to the aorta (image 162/series 2) which was not present on the prior study. Etiology is uncertain. There is no associated inflammation. Consider further evaluation with repeat study with IV contrast. 4. Nonspecific right upper quadrant inflammation is presumably related to recent surgery; however, acute pancreatitis or cholecystitis is not excluded. Dictated and Authenticated by: Dinh Reed MD. Orderin Lizette Frank MD
[2024-07-24 03:05] LABS: Bilirubin Negative (Negative); Blood Negative (Negative); Clarity Clear (Clear); Glucose Negative (Negative); Ketones Negative (Negative); Leukocyte Esterase Negative (Negative); Nitrite Negative (Negative); Specific Gravity 1.025 (1.005-1.025)
[2024-07-24 03:11] LABS: Bacteria Rare HPF (Negative); C & S Indicated? C&S Done As Ordered; Casts Negative LPF (Negative); Crystals Negative HPF (Negative); Epithelial Cells Few HPF (Negative); Mucus Negative (Negative); RBC Negative HPF (0-2); WBC Negative HPF (0-5)
[2024-07-24] MEDS: ACETAMINOPHEN 1,000 MG/100 ML BAG 400 MG IVPB (03:53)
[2024-07-24] MEDS: Normal Saline 1,000 ML 150 ML IV (04:24)
[2024-07-24] MEDS: MORPHine 4 MG/ML SYR IVP ×2 (04:25→06:53)
== END 2024-07-24 07:06 | disposition short-term general hospital (02) ==
PROVIDERS: Emergency Provider Student in an Organized Health Care Education/Training Program; PCP Internal Medicine
DX: A41.9 Sepsis, unspecified organism (principal); J90 Pleural effusion, not elsewhere classified; R10.9 Unspecified abdominal pain; R50.9 Fever, unspecified; C61 Malignant neoplasm of prostate; C16.9 Malignant neoplasm of stomach, unspecified; C79.51 Secondary malignant neoplasm of bone; Z92.21 Personal history of antineoplastic chemotherapy; Z97.8 Presence of other specified devices; Z87.891 Personal history of nicotine dependence
CPT/HCPCS: 36415; 71250; 80053; 82805; 84145; 87040; 87637; 93005; 96365; 96366; 96367; 96368; 96375; 96376; 99285; 74176; 81003; 81015; 83605; 85025; 85610; 85730; 87086; 93010; J0131; J0456; J2270; J2543; J3370

== ENCOUNTER 2024-08-08 10:42 | Emergency (ER) | payer MEDICARE, SELFPAY ==
[2024-08-08 10:42] VITALS: BP 181/97; PULSE 97; RESP 18; TEMP 37.1; O2SAT 88
[2024-08-08 10:49] VITALS: O2SAT 97
[2024-08-08 10:56] VITALS: BP 181/97; PULSE 97; RESP 18; TEMP 37.1; O2SAT 97
--- NOTE | 2024-08-08 11:03 | ED.GENADUL_ITS ---
Discharge Plan Disposition Patient Disposition: Home Condition: Stable Discharge Details Clinical Impression: Malignant neoplasm prostate, Gastric cancer, Comfort measures only status Primary Care Provider: Rodo Davies ED Provider: Mary Lou Alcaraz Home Meds and New Rx's Prescriptions: No Action oxycodone 5 mg tablet 5 mg PO Q6H abiraterone 250 mg tablet 1,000 mg PO DAILY prednisone 5 mg tablet 5 mg feeding tube DAILY Patient Comments: with chemo tamsulosin 0.4 mg capsule 0.4 mg PO DAILY Patient Comments: TAKE ONE CAPSULE BY MOUTH EVERY DAY Discharge Instructions Instructions: Palliative Care Additional Instructions: You were seen in the emergency department today for evaluation of severe pain in the setting of your cancer, and to establish comfort measures only and hospice status. In our department you had a physical evaluation and received medications for management of your pain and anxiety. I discussed your case with the physician who cares for you at the [facility] and they will ensure that your comfort orders are placed so that you can return to the rehab. Tomorrow you will meet with her hospice team to discuss next steps. Thank you for allowing us to be part of your care. HPI General Mode of arrival: ambulatory . Date/Time Provider Initiated Documentation: 08/08/24 10:58 . Limitations to Documentation: no limitations . Information obtained by: patient, family and old records reviewed . HPI Narrative: HPI: This is a 69-year-old male patient with a past medical history significant for stage IV prostate cancer, gastric cancer, brought in by EMS for uncontrolled pain in the setting of his cancer. The history is largely obtained from the patient's daughter, who is at bedside and has been advocating for her family member. Her father stated that he was desiring to be transitioned to comfort care, and they had a plan to meet with the hospice team tomorrow. The patient had significant abdominal and shoulder pain, and was crying out, which was unresponsive to oral oxycodone. For this reason EMS was summoned and the patient was transported to our facility. The patient and his family member confirmed that they are DNR, DNI, and are not desiring of any diagnostic workup at this time. They did receive 75 mcg of fentanyl by EMS to excellent effect. The patient is endorsing some anxiety, and had some mild hypoxia in the setting of his recent fentanyl administration. Exam: Gen: Awake and alert, in no apparent distress, appears comfortable HEENT: Non-icteric sclera Neck: Supple Lungs: No apparent respiratory distress, normal respiratory effort. CV: Appears well perfused, strong distal pulses Abdomen: Non-distended MSK: Moves 4 extremities without apparent limitation in ROM Skin: Visualized skin without rashes, cyanosis. Neuro: No obvious focal deficits or facial asymmetry. Speaks in full, clear sentences. Psych: Appropriate for situation. MDM: This is a 69-year-old male patient with a history of end-stage cancer presenting for pain in the setting of end-of-life care. Differential includes but is not limited to cancer related pain, hypoxia in the setting of recent narcotic administration, and otherwise diagnosis and differentials are limited given the patient's wish to avoid any additional intervention or evaluation. I did provide the patient with a dose of intravenous morphine as well as an oral Ativan for pain and anxiety, to good effect. ED Course: I reached out [facility], who feels that they would be able to take the patient back, and have orders in place for as needed pain, anxiety, and nausea control. The patient could then meet with hospice in the morning, and I feel that this is a very reasonable plan to keep the patient out of the hospital, as well as meet his comfort needs. [facility] this department and remained hemodynamically appropriate and with improved symptoms while under my care. Mary Lou Alcaraz MD Related Data Home Medications ?Medication ?Instructions ?Recorded ?Confirmed tamsulosin 0.4 mg capsule 0.4 mg PO DAILY 04/06/24 08/08/24 oxycodone 5 mg tablet 5 mg PO Q6H 07/24/24 08/08/24 abiraterone 250 mg tablet 1,000 mg PO DAILY 08/08/24 08/08/24 prednisone 5 mg tablet 5 mg feeding tube DAILY 08/08/24 08/08/24 Allergies Allergy/AdvReac Type Severity Reaction Status Date / Time hydromorphone (From Dilaudid) AdvReac Intermediate Unknown Verified 08/08/24 10:45 General Stated Complaint: GenMedical SPENCER: 3 Course Vital Signs Vital signs: Vital Signs Temperature 37.1 C 08/08/24 10:42 Pulse 97 H 08/08/24 10:42 Respiratory Rate 18 08/08/24 10:42 Blood Pressure 181/97 H 08/08/24 10:42 Pulse Oximetry 88 L 08/08/24 10:42 Temperature 37.1 C 08/08/24 10:56 Temperature Source Temporal Artery Scan 08/08/24 10:56 Pulse 97 H 08/08/24 10:56 Respiratory Rate 18 08/08/24 10:56 Blood Pressure 181/97 H 08/08/24 10:56 Blood Pressure Position Sitting 08/08/24 10:56 Pulse Oximetry 97 08/08/24 10:56 Oxygen Delivery Method Nasal Cannula 08/08/24 10:56 Oxygen Flow Rate 2 08/08/24 10:56 Pain Level 0 08/08/24 10:56 Medical Decision Making Quality:SDOH Health Related Social Needs: No Data to Display PFSH All Active Problems (Updated 08/08/24 @ 12:33 by Mary Lou Alcaraz MD) Comfort measures only status (Acute) Gastric cancer (Acute) Fever of unknown origin (Acute) Abdominal pain (Acute) Pleural effusion (Acute) Sepsis (Acute) Gastroduodenitis (Acute) Hypertension (Chronic) Malignant neoplasm prostate (Chronic) Medical History Prediabetes Social History Smoking/Tobacco Use Status: Former Tobacco Use Smoking risk assessment performed?: Yes Alcohol Intake: never Drug use: Never Substance use type: does not use Housing: snf Do you feel safe at home: Yes Do you feel safe in your relationship?: Yes
[2024-08-08] MEDS: MORPHine 4 MG/ML SYR IVP (11:49)
[2024-08-08] MEDS: LORazepam 0.5 MG TAB PO (12:19)
[2024-08-08] MEDS: fentaNYL 100 MCG/2 ML VIAL 50 MCG IVP (12:57)
== END 2024-08-08 13:03 | disposition home or self-care (01) ==
PROVIDERS: Emergency Provider Emergency Medicine; PCP Internal Medicine
DX: G89.3 Neoplasm related pain (acute) (chronic) (principal); C61 Malignant neoplasm of prostate; C78.89 Secondary malignant neoplasm of other digestive organs; I10 Essential (primary) hypertension; Z87.891 Personal history of nicotine dependence
CPT/HCPCS: 96374; 96375; 99284; J2270; J3010